=== PATIENT | female | born 1945 | race African-American/Black ===

== ENCOUNTER 2021-04-10 19:45 | Inpatient (IN) | payer OTHER ==
[~2021-04-10] VITALS: Ht 165.1 cm; Wt 104.3 kg
--- NOTE | ~2021-04-10 | EMS ---
[place] [id number] EMS Patient Care Report Name: SONY ALMANZA Room #: 434-P ADM IN M.R.#: [id number] Admission: 04/10/21 Attend Phys: Lawrence Lopez MD Discharge: Date of : 41 Report #: [id number] THIS REPORT FOR: //name// Report Transmitted: 04/13/2021 14:51 EMS Care Summary [place], [place]/[facility] Incident [id number] @ 04/10/2021 19:03 Incident Location [address] [place] [address] Patient SONY ALMANZA Female, 76 Years 1945 Patient Address [address] [place] [address] Patient History Congestive Heart Failure (CHF),Chronic Obstructive Pulmonary Disease (COPD),Diabetes,Hypertension (HTN),Kidney/Renal Failure,Amputee,Hemorrhoids,Dialysis,Coronary Artery Disease (CAD), Patient Allergies Penicillin allergy,Morphine,Intravenous Dye,Fish allergy,Gabapentin, Patient Medications Albuterol, Nitroglycerin, Midodrine, Aspirin, Lasix, Tramadol, Reglan, Metoprolol, Omeprazole, Atorvastatin, Renvela, Flonase, Lidocaine, Vitamin B12, Colace, Protonix, Chief Complaint DIABETIC ULCER WITH INFECTION Disposition Transported No Lights/[place] Dispatch Reason Sick Person Transported To [address] [place] [address] EMS Patient Care Report Name: SONY ALMANZA Room #: 434-P ADM IN M.R.#: [id number] Admission: 04/10/21 Attend Phys: Lawrence Lopez MD Discharge: Date of : 41 Report #: [id number] RESPONDED TO SICK AT HOME. UPON ARRIVAL PT FOUND SITTING IN CHAIR ALERT AND ORIENTED. FAMILY REPORT THEY'VE BEEN TREATING PT TOES FOR DIABETIC ULCERS BUT FEEL IT MAYBE INFECTED. PT TOES ARE WRAPPED IN [place]. PT REPORTS OTHER FOOT HAS ALREADY AMPUTATED TOES FROM THIS ISSUE. PT DENIES PAIN AND SCOOTED TO COT FROM WHEELCHAIR. PT VITALS OBTAINED. PT TRANSPORTED TO [facility] WITH NO CHANGES. PT TEAM LIFTED TO BED AND HANDRAILS UP. REPORT GIVEN TO NURSE. Initial Vitals @19:30P: 78,R: 18,BP: 106/51,Pain: 0/10,GCS: 15,SpO2: 97,Revised Trauma: 12, @19:35P: 66,R: 18,BP: 114/66,GCS: 15,CO: 14,SpO2: 100,Revised Trauma: 12, Assessments @19:06MENTAL:Place Oriented,Time Oriented,Person Oriented,Event Oriented,SKIN:HEENT:Head/Face: No Abnormalities,Eyes: No Abnormalities,Neck/Airway: No Abnormalities,LUNG SOUNDS:General: No Abnormalities,Left Upper: No Abnormalities,Right Upper: No Abnormalities,Left Lower: No Abnormalities,Right Lower: No Abnormalities,ABDOMEN:General: No Abnormalities,Left Upper: No Abnormalities,Right Upper: No Abnormalities,Left Lower: No Abnormalities,Right Lower: No Abnormalities,PELVIS//GI:No Abnormalities,EXTREMITIES:Right Leg: Weakness,Left Leg: Weakness,Left Arm: No Abnormalities,Right Arm: No Abnormalities,PULSE:NEURO:No Abnormalities, Impression Skin infection Procedures @19:06ALS AssessmentResponse: UnchangedSucceeded Timeline 19:00,Call Received 19:00,Dispatch Notified 19:03,Dispatched 19:03,En Route 19:03,On Scene 19:06,At Patient 19:06,ALS Assessment,Response: UnchangedSucceeded, 19:29,Depart Scene 19:30,BP: 106/51 M,PULSE: 78,RR: 18 R,SPO2: 97 Ox,ETCO2: ,BG: ,PAIN: 0,GCS: 15, 19:35,BP: 114/66 M,PULSE: 66,RR: 18 R,SPO2: 100 Ox,ETCO2: ,BG: ,PAIN: ,GCS: 15, 19:43,At Destination 19:53,Call Closed Disclaimer v1.1 Copyright 2020 [employer] This EMS Care Summary contains data elements from the applicable legal record (which may be displayed differently). It is designed to provide pertinent [address] [address] EMS Patient Care Report Name: SONY ALMANZA Room #: 434-P ADM IN M.R.#: [id number] Admission: 04/10/21 Attend Phys: Lawrence Lopez MD Discharge: Date of : 41 Report #: [id number] information for the following purposes: continuity of care, clinical quality, and state data reporting. The complete legal record is available to ED staff and administrators of the receiving hospital in [facility]'s Patient Tracker. All data is provided "as is."
[2021-04-10 20:35] LABS: ABSOLUTE NEUTROPHILS 4.6 thou/uL (1.4-8.2); BASOPHILS 1.3 % (0.0-2.0); EOSINOPHILS 2.2 % (0.0-3.0); HEMATOCRIT 30.6 % (37.0-47.0); HEMOGLOBIN 9.7 gm/dL (12.0-15.0); LYMPHOCYTES 22.1 % (24.0-44.0); MCH 27.8 pg (26.0-34.0); MCHC 31.7 g/dL (28.0-37.0); MCV 87.7 fL (80.0-100.0); MONOCYTES 11.4 % (1.0-8.0); PLATELET COUNT 403 thou/uL (150-400); RBC 3.48 mil/uL (4.20-5.00); WBC 7.4 thou/uL (4.0-11.0)
[2021-04-10 20:44] VITALS: BP 126/63
[2021-04-10 20:53] LABS: CALCIUM 9.3 mg/dL (8.5-10.1); CREATININE 10.8 mg/dL (0.6-1.0)
[2021-04-10 21:00] LABS: ALBUMIN 2.8 g/dL (3.4-5.0); TOTAL BILIRUBIN 0.4 mg/dL (0.2-1.0); TOTAL PROTEIN 8.5 g/dL (6.4-8.2)
[2021-04-10] MEDS ORDERED: TRAMADOL 50 MG50 MG PO (22:36)
[2021-04-10] MEDS ORDERED: RENVELA800 MG PO (22:37)
[2021-04-10] MEDS ORDERED: RENA-VITE RX T1 EACH PO (22:37)
[2021-04-10] MEDS ORDERED: RENA-VITE TABL0.8 MG PO (22:37)
[2021-04-10] MEDS ORDERED: ATORVASTATIN CA80 MG PO (22:37)
[2021-04-10] MEDS ORDERED: NYAMYC15 GM TOP (22:38)
[2021-04-10] MEDS ORDERED: OMEPRAZOLE 20 M20 M1 PO (22:38)
[2021-04-10] MEDS ORDERED: METOPROLOL TART25 MG PO (22:38)
[2021-04-10] MEDS ORDERED: PROAIR HFA8.5 GM INH (22:38)
[2021-04-10] MEDS ORDERED: OMEPRAZOLE40 MG PO (22:38)
[2021-04-10] MEDS ORDERED: FLONASE 0.05%50 MCG NARES (22:39)
[2021-04-10] MEDS ORDERED: LOPERAMIDE 2 MG2 M1 PO (22:39)
[2021-04-10] MEDS ORDERED: ASA81BEC PO (22:39)
[2021-04-10] MEDS ORDERED: COLACE100 MG PO (22:39)
[2021-04-10] MEDS ORDERED: VENTOLIN HFA INH8 GM INH (22:39)
[2021-04-10 22:42] VITALS: BP 192/69
[2021-04-10 23:05] VITALS: BP 161/64
--- NOTE | 2021-04-11 02:42 | NUR ---
ADMISSION ASSESSMENT COMPLETED. PT IS ALERT AND ORIENTED.DX DIABETIC FOOT WOUND, PT IS ON ROOM AIR. SHE DENIES ANY SOA DESPITE MISSING TWO DIALYSIS SESSIONS. WITH [facility]. TONY FISTULA WITH [facility] AND [facility].PT REPORTS SHE IS WHEEL CHAIR BOUND AT HOME. DRY SCALY SKIN NOTED TO BLE.DENIES ANY NAUSEA/VOMITING. BM A DAY AGO. ORIENTED TO STAFF AND USE OF CALL LIGHT. FALL PREC IN PLACE. NO FURTHER CONCERNS AT THIS TIME.
--- NOTE | 2021-04-11 03:31 | NUR ---
NEW PT ADMITTED TO ROOM 434. REPORT RECIEVED FROM ED, PT AO X4. DENIES ANY PAIN. IV VANCO INFUSING FROM ED. ORIENTATION TO ROOM/FACILITY PROVIDED. WOUND CARE PICTURES OF SACRUM AND LEFT FOOT/ LEFT TOE COMPLETED AND WOUNDS DRESSED. PT TOLERATED C NO PAIN. R THUMB PIV. LUE AV FISTUALA. NPO AFTER MIDNIGHT PER ORDERS, NOTFIED PT, PT VERBALIZED UNDERSTANDING. DENIES ANY OTHER NEEDS AT THIS TIME. CALL LIGHT IN REACH.
[2021-04-11 03:59] VITALS: BP 138/47
[2021-04-11 05:31] LABS: HEMATOCRIT 32.7 % (37.0-47.0); HEMOGLOBIN 10.3 gm/dL (12.0-15.0); MCH 27.7 pg (26.0-34.0); MCHC 31.4 g/dL (28.0-37.0); MCV 88.1 fL (80.0-100.0); RBC 3.71 mil/uL (4.20-5.00); RDW 17.3 % (10.5-14.5); WBC 6.9 thou/uL (4.0-11.0)
[2021-04-11 05:46] LABS: CALCIUM 8.7 mg/dL (8.5-10.1); CREATININE 10.8 mg/dL (0.6-1.0); POTASSIUM 4.6 mmol/L (3.5-5.1)
[2021-04-11 07:47] VITALS: BP 137/50
--- NOTE | 2021-04-11 11:21 | NUR ---
ASSUMED PT CARE THIS AM. PT IS ALERT & ORIENTED X4. PT HAS IV ON R WRIST SALINE LOCKED AND TONY FISTULA. PT IS WHEELCHAIR BOUND. PT DIALYSIS SCHEDULE IS EVERY SATURDAY, SATURDAY AND SATURDAY. PT IS ACCUCHECK ACHS. PT HAS WOUNDS ON L FOOT AND SACRUM. PT IS ON ROOM AIR. ADVANCE DIET TO RENAL/CARB CONTROL FOR LUNCH. PT TOLERATED MEDICATION WELL. NO C/O OF PAIN, NAUSEA AND VOITING. WILL CONTINUE TO MONITOR PT. FOLLOW POC.
--- NOTE | 2021-04-11 11:52 | NUR ---
INITIAL ASSESSMENT: SW reviewed chart and spoke with nursing and attending physician. Pt was admitted from home due to diabetic foot ulcer. Pt is currently NPO. Pt is on IV abx. ID/wound care/neprology consulted. Pt with hx of ESRD and is on dialysis. Pt has received a COVID vaccine. SW met with pt at bedside. Introduced role of SW. Pt is alert/orientated x 4. Pt reports she lives at home with her niece. Pt is mainly w/c bound. Pt has a alejandro lift and is able to stand and pivot. Pt goes to the [facility] dialysis clinic . Pt's chair time is noon. Pt has transportation through [employer]. Pt has used [facility] [employer] and [facility] in the past. Pt has been to [facility] in 2018. Pt's PCP is Dr. Adarsh Caraballo. Pt is hoping to be able to discharge back home when medically stable. Will need PT/OT evals ordered to evaluate pt for discharge needs. SW is following to assist as needed with discharge planning.
[2021-04-11 15:00] VITALS: BP 142/70
[2021-04-11 20:15] VITALS: BP 113/50
[2021-04-12 02:06] LABS: GLYCOHEMOGLOBIN (HGB A1C) 5.7 % (4.8-5.6)
--- NOTE | 2021-04-12 02:56 | NUR ---
ASSESSED AT START OF SHIFT. DR JOHNSON STOPPED BY TO SEE PT. WOUND CULTURE COLLECTED ON LEFT FOOT. IV INTACT AND ABX INFUSING, DIALYSIS FISTULA ON LEFT UA. 2.5L OF DIALYSIS OUT YESTERDAY PER REPORT. FALL PREC IN PLACE AND PT RESTING WELL.
[2021-04-12 08:18] VITALS: BP 105/52
[2021-04-12 08:20] VITALS: BP 108/60
--- NOTE | 2021-04-12 11:48 | NUR ---
Assumed pt care this am. Pt is alert & oriented x4. pt has iv site on r thumb and brendan fistula. Pt is wheelchair bound. Pt is accucheck achs. Pt will have dialysis this afternoon. Did wound dressing on L toe with NS, Aquacel AG, Kerlix and Tape. Applied barrier cream on sacrum. Pt is on room air. Pt will have aortogram tomorrow. Educated pt about turning q2h this am. Pt tolerated diet and medication well. No c/o of nausea and vomiting. Pt daughter at the bedside. Will continue to monitor pt. Follow POC.
--- NOTE | 2021-04-12 13:36 | NUR ---
Assess due to notification of pt with sacral and left foot wound. Hx DM, ESRD/dialysis, right transmetatarsal amputation. Pt had few missed dialysis treatments prior admit, difficulty getting transportation. C/o nausea and not eating well. Will usually drink Nepro at dialysis and willing to drink here. Assisted pt ordering menu options for tonights dinner. Wts variable 239-250 lb past few days. Low nutrition risk with appropriate nutrition interventions in place
[2021-04-12 17:24] VITALS: BP 144/76
--- NOTE | 2021-04-12 18:24 | NUR ---
Horacio Tracey "bhargav" called today and asked if the pt would qualify for a hospital bed and bsc. Based on level of function, her ins plan will not cover a bed and they do no cover BSC. Options for accessing these items discussed. She also notes they have ongoing problems with [facility] transport not be reliable and they have complained numerous times. Encouragement given to talk with the dialysis clinic [facility] as well as [facility] however the pt is outside the catchment area for christ[facility]. Bhargav is hoping [facility] can assist with wound care at [place] and referred to the pt to decide wheter she wanted to use [facility] or [facility] again. Will f/u with the pt. Dc time frame is uncertain as pt is having surgery for TMA soon and continues on ivatb. Therapy ordered.
[2021-04-12 20:10] VITALS: BP 133/50
[2021-04-13] VITALS (9 sets, daily range): BP systolic 110–150; BP diastolic 41–56
--- NOTE | 2021-04-13 02:28 | NUR ---
ASSESSED AT START OF SHIFT. PT RESTING IN BED. REPOSITION FOR COMFORT. TYELNOL GIVEN FOR PAIN. PT NPO AT MIDNIGHT. FALL PREC IN PLACE. ABX GIVEN. WILL CONT TO MONITOR.
[2021-04-13 09:08] LABS: HEP B SURFACE Ab(ANTI-HBS Non Reactive (()); HEPATITIS B SURFACE AG Negative (Negative)
--- NOTE | 2021-04-13 10:58 | NUR ---
ON-GOING ASSESSMENT: CM REVIEWED CHART. PT REMAINS ON IV ANBX. CONTINUING WITH DIALYSIS EVERY M/W/F. PLANS ARE FOR PATIENT TO HAVE ANGIOGRAM TODAY TO DETERMINE FURTHER INTERVENTIONS. CM WILL CONTINUE TO FOLLOW TO ASSIST NEEDED.
--- NOTE | 2021-04-13 12:58 | NUR ---
A/O X 4. ROOM AIR. WHEELCHAIR BOUND. RIGHT THUMB IV SALINE LOCKED. LEFT UPPER ARM FISTULA. NPO. WAITING TO HAVE ANGIOPLASTY TODAY. BILATERAL FEET SHE HAS NO FEELING. TRAMADOL GIVEN FOR BACK PAIN. HAVE HELD ALL OTHER MEDS.
--- NOTE | 2021-04-14 00:47 | NUR ---
Pt started on new abx meropenem. Nursing unable to administer med as it was put on hold, with a note that pt has anaphylactic reaction to pcn. DR López called and vm left regarding medication. Awaiting call back and update.
--- NOTE | 2021-04-14 00:52 | NUR ---
Nursing spoke with pt's niece per pt's request and provided update on care plan. Pt and niece were requesting pain patch for pt's hip/back. Oncall provider called and patch ordered. Pt had an episode of bile-looking emesis after taking meds with a scoop of applesauce. Pt now resting comfortable. 5 hours of bedrest complete. Mynx dressing to R/groin remains C/D/I. No hematoma noted. VSS stable. Pt repositioned a little to her L/side. Voiced being more comfortable. Nursing to continue to monitor.
[2021-04-14 04:38] VITALS: BP 158/47
--- NOTE | 2021-04-14 06:04 | NUR ---
Pt had another emesis this am. Excoriation to bottom treated with zguard. Pt declined nystatin this shift. Voiced she would have it put on today. Mynx dressings continues to remain without bleeding or hematoma. C/D/I. Fall precaution remains in place. Contact Isolation precaution for ESBL in wound. Nursing to continue to monitor.
[2021-04-14 07:25] VITALS: BP 149/72
--- NOTE | 2021-04-14 13:38 | HC ---
[facility] [place] [address] CONSULTATION Name: SONY ALMANZA Room #: 216-P ADM IN M.R.#: [id number] Admission: 04/10/21 Attend Phys: Lawrence Lopez MD Discharge: Date of : 41 Report #: [id number] THIS REPORT FOR: cc: Adarsh Caraballo MD, [place] S. MD Althoff, Jeffrey R. MD ~ DATE OF SERVICE: 04/11/2021 CHIEF COMPLAINT: Left foot ulcerations. HISTORY OF PRESENT ILLNESS: This is a 76-year-old female patient with a prior right transmetatarsal amputation, who was admitted to the hospital with a diabetic ulceration to the left foot. The wound care team was concerned for possible infection. She has missed several dialysis treatments. She denies any pain associated with the foot at this time. PAST MEDICAL HISTORY: Significant for type 2 diabetes mellitus, hypertension, end-stage renal disease requiring hemodialysis, atrial fibrillation, right foot transmetatarsal amputation. SOCIAL HISTORY: Negative for alcohol or tobacco use. FAMILY HISTORY: Noncontributory. MEDICATIONS: Include tramadol, sevelamer, atorvastatin, metoprolol, omeprazole, nystatin, loperamide, fluticasone. ALLERGIES: TO FISH OIL, OXYCODONE, PENICILLIN, SHELLFISH, GABAPENTIN, MORPHINE, AND MEPERIDINE. REVIEW OF SYSTEMS: CONSTITUTIONAL: Denies fever, chills, weight loss. NEUROLOGICAL: The patient denies focal weakness, tingling. EYES: The patient denies visual changes or drainage. ENT: The patient denies earache, nasal drainage or throat. CARDIOVASCULAR: The patient denies chest pain, palpitations, diaphoresis. PULMONARY: No cough, shortness of breath. GASTROINTESTINAL: Denies nausea, vomiting, diarrhea. ORTHOPEDIC: The patient is having some drainage and ulceration to the left foot. Others systems in a 14-point review of systems are negative. PHYSICAL EXAMINATION: VITAL SIGNS: At this time include temperature 36.4, pulse 80, respiration 18, blood pressure 142/70. GENERAL: This is a chronically ill-appearing female patient appears [address] [address] CONSULTATION Name: SONY ALMANZA Room #: 216-P [facility] IN M.R.#: [id number] Admission: 04/10/21 Attend Phys: Lawrence Lopez MD Discharge: Date of : 43 Report #: [id number] distress. HEENT: Normocephalic. Nose and throat clear. NECK: Supple. LUNGS: Diminished. HEART: Irregular without murmur. ABDOMEN: Soft. Bowel sounds present. EXTREMITIES: Lower extremities demonstrate a well-healed right transmetatarsal amputation, left foot demonstrates diminished distal pulses. There is some discoloration of the foot and lower leg with some hyperpigmentation. There is an ulceration on the dorsal aspect of the second toe and an ulcer between the toes that appears to probe to bone. NEUROLOGIC: The patient is alert and oriented. LABORATORY DATA: Sodium 134, potassium 4.6, chloride 93, CO2 21, BUN 72, creatinine is 10.8. White blood cell count is 6.9 with a hemoglobin of 10.3. CLINICAL IMPRESSION: 1. Torres 3 diabetic foot ulceration to the left foot with ulceration to the second toe and interdigital webspace probes to bone with x-ray suggestive of osteomyelitis. 2. End-stage renal disease requiring hemodialysis. 3. Hypertension. 4. Type 2 diabetes mellitus. 5. Atrial fibrillation. RECOMMENDATIONS: At this point in time, we will discuss with Dr. Blanco for possible surgical intervention. I think she needs a further vascular evaluation, possible angiography and revascularization if possible. We will do simple Aquacel AG dressings for now. The patient may require additional surgical intervention, possible transmetatarsal amputation. I appreciate being asked to see her in consultation. <ELECTRONICALLY SIGNED> By: Clifton Cramer MD 04/14/21 1338 0813 1130 Clifton Cramer MD /nt
[2021-04-14 20:17] VITALS: BP 101/51
[2021-04-15] VITALS (10 sets, daily range): BP systolic 83–143; BP diastolic 34–67
--- NOTE | 2021-04-15 04:53 | NUR ---
ASSUMED PT CARE AT 1900, PT IS AWAKE, ALERT AND ORIENTEDX4, SR ON TELE, DENIES PAIN OR SOB, BP SOFT, HELD METOPROLOL, BP LOW IN THE 80S SYSTOLIC, DIGITAL ENGINEER NOTIFIED, ORDERS FOR MIDODRINE RECEIVED AND GIVEN, BP REHECK BETTER IN THE 100S SYSTOLIC, NO ACUTE DISTRESS NOTED, PLAN FOR SURGERY TODAY, PT AWARE
[2021-04-15 05:38] LABS: CALCIUM 9.1 mg/dL (8.5-10.1); CREATININE 4.2 mg/dL (0.6-1.0); POTASSIUM 3.5 mmol/L (3.5-5.1)
--- NOTE | 2021-04-15 14:50 | NUR ---
PT RETURN TO UNIT FROM [facility] 1400 TODAY. REPORT GIVEN BY EDDIE COLLINS. DRESSING LEFT FOOT CDI. PT REMAINS ON ROOM AIR. WILL CONTIUNE TO ASSESS.
[2021-04-16 00:28] VITALS: BP 111/43
--- NOTE | 2021-04-16 04:18 | NUR ---
PT REMAINS ON TRACH SHIELD, TOLERATING WELL, TF INFUSING AT 20ML/HR, TOLERATING WELL, DENIES PAIN OR SOB, SR/SB ON TELE, EXPRESSES CONCERNS OF LEG WEAKNESS AND NEEDING MORE REHABILITATION TO BUILD HIS STRENGTH, PLAN FOR REHAB ONCE STABLE, PROGRESSING WELL TOWARDS POC
[2021-04-16 04:21] LABS: HEMATOCRIT 28.1 % (37.0-47.0); HEMOGLOBIN 8.9 gm/dL (12.0-15.0); POTASSIUM 4.2 mmol/L (3.5-5.1)
--- NOTE | 2021-04-16 04:29 | NUR ---
PT IS ALERT AND ORIENTED, SR ON TELE, C/O BACK PAIN, PAIN MEDS GIVEN WITH RELIEF, REPOSITIONED WITH PILLOWS, ASSESSMENTS CHARTED, VSS, PRAFO BOOTS APPLIED, PT REMAINS ON BEDREST THIS SHIFT, L. FOOT FDRESSING INTACT, WILL CONTINUE TO MONITOR
[2021-04-16 05:41] VITALS: BP 135/41
[2021-04-16 07:39] VITALS: BP 113/48
[2021-04-16 12:14] VITALS: BP 106/41
[2021-04-16 16:18] VITALS: BP 129/49
[2021-04-16 19:54] VITALS: BP 118/44
[2021-04-17 04:38] VITALS: BP 138/58
--- NOTE | 2021-04-17 04:39 | NUR ---
a&ox4, c/o chronic back pain, tyl given with partial relief, assessments as charted, meds given as per sep, dressing to the left foot intact, denies pain to the l.foot, acute distress noted, will continue to monitor
[2021-04-17 08:20] VITALS: BP 154/77
--- NOTE | 2021-04-17 08:21 | NUR ---
Pt UNDERWENT L TRANSMET AMP ON Saturday04/15/21 WHICH WAS LEFT OPEN, TO CLOSE IN 2-5 DAYS PER PODIATRY. WILL NEED NEW PT ORDER FROM PODIATRY/SURGERY W/ WB RESTRICTIONS/STATUS PRIOR TO INITIATING PT INTERVENTIONS WITH THIS PATIENT.
--- NOTE | 2021-04-17 08:56 | NUR ---
PATIENT HAD SURGERY ON 04/15/21 FOR A TRANS MET AMPUTATION AND IS TO BE LEFT OPEN FOR 2-5 DAYS PER PODIATRY. WILL NEED NEW ORDERS FROM PODIATRY/SURGERY ON WEIGHT-BEARING STATUS PRIOR TO EVALUATING PATIENT.
[2021-04-17 12:40] VITALS: BP 120/47
[2021-04-17 15:56] VITALS: BP 123/46
[2021-04-17 19:28] VITALS: BP 117/46
--- NOTE | 2021-04-18 03:31 | NUR ---
PT CARE ASSUMED WITH PT IN BED WATCHING TV.PT IS A/O X4.PT IS ON BEDREST AND USES A W/C AT HOME PER PT.PT IS ON ROOM AIR.PT IS ACCUCHECK ACHS. DRESSING ON LT FOOT C/D/I .PT IS ANURIC,AV FISTULA ON LT UA AND DIALYSE ON --.NYSTAIN POWDER APPLIED ORDERED.WILL CONTINUE TO MONITOR PER POC
[2021-04-18 04:20] VITALS: BP 126/50
[2021-04-18 07:40] VITALS: BP 125/54
[2021-04-18 15:24] VITALS: BP 135/55
--- NOTE | 2021-04-18 18:07 | NUR ---
Report called to Leta COLLINS.
[2021-04-18 19:42] VITALS: BP 161/66
[2021-04-19 04:38] VITALS: BP 129/60
[2021-04-19 05:33] LABS: HEMATOCRIT 28.7 % (37.0-47.0); HEMOGLOBIN 9.1 gm/dL (12.0-15.0); MCH 27.8 pg (26.0-34.0); MCHC 31.9 g/dL (28.0-37.0); MCV 87.2 fL (80.0-100.0); RBC 3.29 mil/uL (4.20-5.00); RDW 17.7 % (10.5-14.5)
--- NOTE | 2021-04-19 05:49 | NUR ---
PT ARRIVED FROM AT AROUND SHIFT CHANGE. ALERT AND ORIENTED. REPOSITIONNG PROVIDED PER HER REQUEST. LOOSE STOOL NOTED, EXCORIATED PINK BOTTOM, ZGUARD APPLIED. PRAFO BOOTS IN PLACE.ROOM AIR. AFEBRILE.ISOLATION FOR ESBL.PAIN TO LOWER BACK, ORAL MEDS HELP.NPO SINCE MIDNOC, PLAN FOR SURGERY TO FOOT WITH DR LOVELACE TODAY. PT AWARE.
[2021-04-19 06:13] LABS: CALCIUM 9.2 mg/dL (8.5-10.1); CREATININE 6.1 mg/dL (0.6-1.0)
[2021-04-19 07:30] VITALS: BP 133/51
--- NOTE | 2021-04-19 09:44 | NUR ---
Beside nurse reported she going for surgery today. Will cont following as needed for dc needs.
--- NOTE | 2021-04-19 15:41 | O ---
[facility] [place] [address] OPERATIVE REPORT Name: SONY ALMANZA Room #: 441-P ADM IN M.R.#: [id number] Admission: 04/10/21 Attend Phys: Lawrence Lopze MD Discharge: Date of : 41 Report #: [id number] THIS REPORT FOR: cc: Adarsh Caraballo MD, Washington S. MD Rizzi, Raymond M. DPM ~ DATE OF SERVICE: 04/15/2021 PREOPERATIVE DIAGNOSIS: Left diabetic foot ulcer with osteomyelitis. POSTOPERATIVE DIAGNOSES: Left diabetic foot ulcer with osteomyelitis with additional infection tracking back along the flexor digitorum longus to the proximal heel. SURGERY: Left transmetatarsal amputation. ANESTHESIA: General anesthesia. DESCRIPTION OF PROCEDURE: The patient was transferred to operating room and placed on the operative table in supine position. The left lower extremity was prepped and draped in the usual sterile manner. Attention was directed to the left foot after it was prepped and draped and a fishmouth incision was made, carrying the incision down to bone and then we cut in off the metatarsals distally, removing the distal part of the foot entirely. I then dissected back of the metatarsals and while doing so, I noted a significant infection tracking back along the FDL plantar aspect to the hindfoot. There was a significant tunnel. I removed contents of the tunnel as much as I could. I was considering doing a bigger incision on the plantar foot to open this up further, but because of the patient's frailty, I am holding off for a couple days to see how she improves. I will also discuss with the family. I flushed out thoroughly and removed all tendinous tissue in the plantar flap and then I closed it loosely with #5 Ethibond. Dressing changes will be done daily and if possible second surgery will be in next 2-5 days. This will be a wound culture and further debridement to see how she is doing. Possibly some antibiotic beads if we can have some at [facility]. A base dressing was applied of fluffs, Kerlix and Skip bandage. The patient [facility] [address] [place] [address] OPERATIVE REPORT Name: SONY ALMANZA Room #: 441-P [facility] IN ..#: [id number] Admission: 04/10/21 Attend Phys: Lawrence Lopez MD Discharge: Date of : 41 Report #: [id number] tolerated the procedure well and left the operating room with stable vital signs and vascular intact. <ELECTRONICALLY SIGNED> By: Catalino Bowie DPM 04/19/21 1541 1246 1314 Catalino Bowie DPM /nt
[2021-04-19 16:38] VITALS: BP 110/59
--- NOTE | 2021-04-19 16:43 | NUR ---
Pt scheduled for left foot transmet delayed wound closure and further debridment at 1830 this day. POD indicated that he had discussed that if wound is still infected --may not close this debridement. Discussed with Hilaria and family previously and they agree with plan. 5N assessed yesterday and they will look at WB status after procedure but will likely recommend skilled post acute care stay which they documented that pt refuses and indicated desire to return home with hh. Cm to follow regarding dc needs.
[2021-04-19 16:56] VITALS: BP 151/56
--- NOTE | 2021-04-19 17:07 | PATH ---
[facility] [address] [place] [address] PATHOLOGY RPT PROCEDURE Name: SONY ALMANZA Room #: 441-P ADM IN M.R.#: [id number] Admission: 04/10/21 Date of : 41 Discharge: Report #: [id number] Path Case #: [id number] [facility] Accession Number: [id number] . 01 Material submitted: . foot - LEFT TRANSMETATARSAL AMPUTATION. Modifiers: left . 01 Clinical history: . TRANSMETATARSAL AMPUTATION (RAY_ LEFT FOOT DIABETIC ULCER WITH OSTEOMYELITIS . 02 Diagnosis: Foot, left, transmetatarsal amputation: - Skin and subcutaneous tissue with ulceration and marked acute inflammation extending into underlying bone. - Bone with acute osteomyelitis and osteonecrosis on second toe. - Bone margins on all toes unremarkable. (IUV:joan; 04/19/2021) MBR 04/19/2021 1604 Local . 02 Electronically signed: . Emily Mckenzie MD, Pathologist NPI- [id number] . 01 Gross description: . The specimen is received in formalin, labeled "Sony Almanza, left transmetatarsal amputation". Received is a left forefoot amputation, with all five toes present, measuring 9.6 x 7.1 x 4.0 cm in greatest dimensions. All five bone margins are blunt in appearance, consistent with transection. The skin and soft tissue margins are inked as follows: Toe 1-black, toe 2-blue, toe 3-yellow, toe 4-red, toe 5-orange. All five nails are present displaying a light montalvo to brown-black and thickened appearance. The epidermal surface is dusky naylor-montalvo to brown-naylor in appearance. On the dorsal aspect of the second toe, a single lesion is identified, which is light montalvo and focally crusted in appearance, measuring 0.7 x 0.5 cm. The specimen is submitted representatively as follows: . A1 longitudinal cross-section through bone margin of toe 1, following decalcification A2 horizontal cross-section through lesion on toe 2, following decalcification A3 longitudinal cross-section through bone margin of toe 2, following decalcification A4 longitudinal cross-section through bone margin of toe 3, following decalcification A5 longitudinal cross-section through bone margin of toe 4, following [address] [address] PATHOLOGY RPT PROCEDURE Name: SONY ALMANZA Room #: 441-P [facility] IN M.R.#: [id number] Admission: 04/10/21 Date of : 41 Discharge: Report #: [id number] Path Case #: [id number] decalcification A6 longitudinal cross-section through bone margin of toe 5, following decalcification. (CAA; 04/18/2021) QA/[facility] 04/18/2021 1551 Local . 02 Pathologist provided ICD-10: L97.529, L98.9, M86.172, M87.9 . 02 CPT . 447882, [id number] Specimen Comment: A courtesy copy of this report has been sent to [phone] Specimen Comment: [id number], Specimen Comment: Report sent to , DR AREVALO / DR EARL Performed at: [address] [facility] [address], [place], [place] [id number] MD Jamal Villasenor MD Phone: [phone] Performed at: [address] [facility] [address] [id number] MD Emily Mckenzie MD Phone: [phone]
--- NOTE | 2021-04-19 18:41 | NUR ---
ASSUMED CARE OF PT AT 0700 THIS MORNING. PT IS A/OX4 AND SCHEDULED FOR SURGERY TODAY, UNKNOWN TIME. SURGERY TO CLOSE INCISION ON RT FOOT. PT HAD METATARSALS AMPUTATED ON BILAT FEET. ASSESSMENTS NOTED IN CHART AND OTHERWISE UNREMARKABLE. FALL PRECAUTIONS ARE IN PLACE. CALL LIGHT AND OTHER NEEDS ARE WITHIN REACH. MEDS AND TX GIVEN NEEDED AND SCHEDULED. WILL MONITOR AND NOTE ANY CHANGES. DIALYSIS NURSE ARRIVED THIS AFTERNOON TO PERFORM TX. CALLED PRE-OP AND THEY WERE INTERESTED IN BRINGING PT DOWN TO SURGERY. PT WON'T FINISH DIALYSIS UNTIL 1800 HRS. PULLED LAB DRAW FOR K+ PER ANESTHESIOLOGIST.PT IS GOING TO SURGERY AT 1900HRS THIS EVENING.
[2021-04-19 22:00] VITALS: BP 149/47
[2021-04-20 00:34] VITALS: BP 127/41
[2021-04-20 00:35] VITALS: BP 139/52; BP 145/54; BP 146/51
--- NOTE | 2021-04-20 03:55 | NUR ---
PT TAKEN DOWN TO SURGERY AT ABOUT SHIFT CHANGE. HAD I/D OF FOOT.PT IS DOING WELL. BLOOD SUGAR WHEN SHE CAME UP WAS 93, SHE ATE SOME BOXED LUNCH. CHRONIC BACK PAIN-GETTING NORCO WITH RELIEF.
[2021-04-20 04:09] VITALS: BP 133/48
[2021-04-20 04:58] LABS: POTASSIUM 4.2 mmol/L (3.5-5.1)
[2021-04-20 05:06] LABS: HEMATOCRIT 26.7 % (37.0-47.0); HEMOGLOBIN 8.6 gm/dL (12.0-15.0)
[2021-04-20 07:07] VITALS: BP 152/55
--- NOTE | 2021-04-20 11:54 | NUR ---
SW reviewed chart and spoke with nursing and attending physician. Pt is s/p left foot debridement and delayed wound closure of TMA, left foot. Pt remains on IV abx. PT/OT evals ordered today to evaluate pt. Awaiting WBS clarification as well. 5N consulted and will re-evaluate pt after therapy evals. Pt is resistent to going to a SNF. Pt has used [facility] and [facility] in the past. Pt goes to outpatient dialysis at the [facility] in [place]. REAL is following to assist as needed with discharge planning.
[2021-04-20 15:48] VITALS: BP 139/44
--- NOTE | 2021-04-20 19:17 | NUR ---
ASSUMED CARE OF PT AT 0700 THIS MORNING. PT HAS BEEN A/OX4, ASSESSMENTS ARE NO CHANGE FROM HANDOFF LAST NIGHT. CALL LIGHT AND OTHER NEEDS ARE IN REACH. FALL PRECAUTIONS IN PLACE. WOUND DRESSING ON RT FOOT C/D/I, RT FISTULA UNREMARKABLE. IV IN RT HAND PATENT. ASSESSMENTS NOTED IN CHART AND OTHERWISE UNREMARKABLE. MEDS AND TX GIVEN NEEDED AND SCHEDULED. WILL MONITOR AND NOTE ANY CHANGES.
[2021-04-20 19:44] VITALS: BP 108/46
--- NOTE | 2021-04-21 02:53 | NUR ---
PT ALERT AND ORIENTED. WOUND DRSG TO FOOT IS C/D/I. PT GIVEN PAIN MEDS FOR BACK AND HIP PAIN. REPOSITIONING PROVIDED PER HER REQUEST. NO FURTHER REQUESTS.
[2021-04-21 03:30] VITALS: BP 128/46
[2021-04-21 07:58] VITALS: BP 139/52
--- NOTE | 2021-04-21 13:01 | NUR ---
REAL reviewed chart and spoke with nursing and attending physician. Pt is progressing towards goals for discharge. REAL discussed case with 5N rehabilitation therapy technician and 5N MACHINED PARTS METAL SPRAYER. Pt does not meet admission criteria for 5N. REAL attempted to meet with pt at bedside. Pt was sleeping and having dialysis. REAL spoke with pt's niece, Kyung, via phone. Introduced role of REAL. REAL discussed discharge plan: SNF v. Home with HH. Pt's niece states that pt will not be going to a facility and that she can take care of pt at home. REAL discussed need for wound care and home IV abx. Pt's niece verbalized understanding. REAL provided options for HH and Home infusion companies. Pt's niece requested referral to be sent to [facility] , as they have used [facility] in the past. No preference of home infusion company. REAL confirmed pt's home address and phone number. Pt's niece asked about slings for the alejandro lift they have at home. Pt has had the alejandro lift for several years and is unaware of company who provided the lift. REAL offered to contact a DME company to see if they would be able to order slings. Pt's niece is agreeable. No preference of DME company provided. REAL contacted [facility] liaison regarding the alejandro lift slings. Pt's info faxed to Ariela. Ariela to follow up with pt's niece. REAL faxed referral to [facility] and notified liaisonSavannah. Will need to find out insurance coverage for abx and supplies. REAL also faxed HH referral to [facility] and notified HH liaisonEstela. No weekend discharge planned. Pt will need a PICC line placed for home IV abx. REAL updated 5N and attending physician. REAL is following to assist as needed with discharge planning.
[2021-04-21 16:05] VITALS: BP 133/64
--- NOTE | 2021-04-21 17:07 | NUR ---
assumed care of pt at 0700. pt alert and oriented, no acute distress. 1.1 liters of fluid removed during dialysis. complains of back pain - good relief with med regimen. LLE dressing chnged per order. vitals stable. no other changes to report. will continue to monitor.
[2021-04-21 20:34] VITALS: BP 126/52
[2021-04-22 06:34] LABS: HEMATOCRIT 26.1 % (37.0-47.0); HEMOGLOBIN 8.3 gm/dL (12.0-15.0); MCHC 31.8 g/dL (28.0-37.0); RBC 2.96 mil/uL (4.20-5.00); RDW 17.3 % (10.5-14.5); WBC 7.9 thou/uL (4.0-11.0)
[2021-04-22 07:23] VITALS: BP 134/46
--- NOTE | 2021-04-22 12:47 | NUR ---
Assumed pt care at 7am.Pt in bed resting. Assessment completed.vss. Rerpositioned pt confort.Trade Clerk assisted pt with meals.Good appetite.Dr Sweet here,order noted. Pt dangles at bs when dtr came to visit.Fall bundle in place.Will continue to monitor.
[2021-04-22 15:48] VITALS: BP 149/55
[2021-04-22 20:39] VITALS: BP 139/49
[2021-04-23 05:42] LABS: ABSOLUTE NEUTROPHILS 4.8 thou/uL (1.4-8.2); BASOPHILS 0.9 % (0.0-2.0); HEMATOCRIT 25.8 % (37.0-47.0); HEMOGLOBIN 8.3 gm/dL (12.0-15.0); LYMPHOCYTES 21.2 % (24.0-44.0); MCH 27.9 pg (26.0-34.0); MCHC 32.1 g/dL (28.0-37.0); MCV 86.9 fL (80.0-100.0); PLATELET COUNT 222 thou/uL (150-400); POLYS 56.9 % (36.0-66.0); RBC 2.97 mil/uL (4.20-5.00); RDW 17.6 % (10.5-14.5); WBC 8.4 thou/uL (4.0-11.0)
[2021-04-23 06:41] LABS: ALBUMIN 3.2 g/dL (3.4-5.0); CALCIUM 9.1 mg/dL (8.5-10.1); CREATININE 5.1 mg/dL (0.6-1.0); PHOSPHORUS 3.1 mg/dL (2.5-4.9); POTASSIUM 3.7 mmol/L (3.5-5.1); TOTAL BILIRUBIN 0.6 mg/dL (0.2-1.0); TOTAL PROTEIN 7.4 g/dL (6.4-8.2)
--- NOTE | 2021-04-23 07:29 | NUR ---
PT LYING IN BED. DENIES NEED FOR PAIN MEDICATION. RESTING COMFORTABLY. NO NEEDS VOICED. CALL LIGHT WITHIN REACH. FREQUENT OBSERVATION.
[2021-04-23 08:15] VITALS: BP 125/45
--- NOTE | 2021-04-23 11:27 | NUR ---
ASSUMED PT CARE THIS AM. PT IS ALERT & ORIENTED X4. PT HAS IV SITE ON RFA AND HAS TONY FISTULLA. PT IS ACCUCHECK ACHS. PT TOLERATED DIET AND MEDICATION WELL. NO C/O OF NAUSEA AND VOMITING. PT HAS PRAFO BOOTS ON. PT ON CONTACT ISOLATION DUE TO ESBL ON WOUNDS. PT ON THE BED, BED ON THE LOWEST POSITION, SIDE RAILS UP, CALL LIGHT WITHIN REACH. WILL CONTINUE TO MONITOR PT. FOLLOW POC.
[2021-04-23 15:50] VITALS: BP 115/33
[2021-04-23 19:19] VITALS: BP 104/55
[2021-04-24 04:32] VITALS: BP 99/36
--- NOTE | 2021-04-24 05:39 | NUR ---
PT LYING IN BED. [facility] PROVIDING PAIN RELIEF. TURN PER PT REQUEST. RESTING COMFORTABLY. NO NEEDS VOICED. CALL LIGHT WITHIN REACH. FREQUENT OBSERVATION.
[2021-04-24 07:24] VITALS: BP 118/44
[2021-04-24 11:15] VITALS: BP 118/44
--- NOTE | 2021-04-24 14:44 | NUR ---
ON-GOING ASSESSMENT: CM REVIEWED CHART AND SPOKE WITH ATTENDING. PT WAS A TENTATIVE DISCHARGE FOR TODAY BUT ATTENDING STATING THAT ID WANTS PODIATRY TO SEE PATIENT PRIOR TO DISCHARGE. CM UPDATED ANGELINA SANDOVAL WITH [facility] WHO REPORTS THEY CAN ACCEPT PATIENT AT THE TIME OF DISCHARGE. CM ALSO UPDATED ANGELINA IRIZARRY WITH [facility] OF THE PLAN. JUAN C WITH [facility] MET THIS AM WITH PATIENT AND HER NIECE THAT LIVES WITH HER (ROSALINA) TO DO BEDSIDE TEACHING. [facility] REPOR[facility] THEY DID WONDERFUL WITH THE TEACHING AND ROSALINA FEELS COMFORTABLE. CM NOTIFIED ATTENDING THAT PATIENT HAS NO PICC LINE CURRENTLY. PT IS TO GET A SINGLE LUMEN IJ TODAY (CM VERIFIED WITH JUAN C THAT THIS IS OK WITH THEM). CM ALSO SPOKE WITH PATIENTS NIECE ROSALINA AND NOTIFIED HER THAT CM SPOKE WITH AGUSTINA AT [facility] REGARDING THE SLINGS FOR PATIENTS CHANI LIFT AND THEY SHOULD BE CONTACTING HER TO ARRANGE GETTING THEM. CM ALSO UPDATED [facility] (FAX:[phone]). CM WILL CONTINUE TO FOLLOW TO ASSIST NEEDED.
--- NOTE | 2021-04-24 15:34 | NUR ---
Assumed pt care at 7am. Pt in bed most of the times this shift.Assessment completed.vss. Repositioned q 2h for comfort. Dr Sweet here, order noted. Iv team paged for line placement and Ij placed for home iv antibiotic. Pt in room receiving hemo dialysis.route returner here to educate pt niece on home iv antibiotic.Pt will dc home in am after seen by Dr Bowie. Zofran iv given for nausea this afternoon with relief.Fall precaution in place.Will continue to monitor.
[2021-04-24 16:39] VITALS: BP 118/87
[2021-04-24 19:58] VITALS: BP 119/60
--- NOTE | 2021-04-25 03:24 | NUR ---
ASSUMED PT CARE AT 1900.PT ALERT AND ORIENTED.PT;S FAMILY IN THE ROOM AT SHIFT CHANGE ASSISTING PT.PT IS A FALL RISK BUT SHE IS NOT COMPLIANT WITH FALL PRECAUTIONS.PT GOT UP AND SAT UP BY THE EDGE OF THE BED WITHOUT ASSIST.PT EDUCATED AND ENCOURAGED TO USE HER CALL LIGHT FOR ASSISTANCE.RED DRAINGE NOTED ON PT'S DRSG ON HER L FOOT,WAS NOT THERE AT START OF SHIFT.PUMPED IT WHILE TRYING TO SIT AT EDGE OF BED.MELI PRAFO BOOTS IN PLACE.PT REPOSITIONED WHILE IN BED.L UPPER ARM FISTULA POSITIVE FOR THRILL AND BRUIT.PAIN MED GIVEN PER PT'S REQUEST.FALL AND ISOLATION PRECAUTIONS MAINTAINED.CALL LIGHT WITHIN REACH.
--- NOTE | 2021-04-25 08:11 | NUR ---
VAT PLACED SL RT IJ LINE DUE TO HD STATUS FOR HOME ABX.
[2021-04-25 08:20] VITALS: BP 109/40
[2021-04-25 10:49] LABS: ABSOLUTE NEUTROPHILS 6.3 thou/uL (1.4-8.2); BASOPHILS 0.9 % (0.0-2.0); EOSINOPHILS 1.8 % (0.0-3.0); HEMATOCRIT 27.1 % (37.0-47.0); HEMOGLOBIN 8.5 gm/dL (12.0-15.0); LYMPHOCYTES 14.3 % (24.0-44.0); MCH 27.5 pg (26.0-34.0); MCHC 31.4 g/dL (28.0-37.0); MCV 87.5 fL (80.0-100.0); MONOCYTES 18.5 % (1.0-8.0); PLATELET COUNT 247 thou/uL (150-400); POLYS 64.5 % (36.0-66.0); RBC 3.09 mil/uL (4.20-5.00); RDW 17.3 % (10.5-14.5); WBC 9.8 thou/uL (4.0-11.0)
[2021-04-25 11:17] LABS: CALCIUM 9.3 mg/dL (8.5-10.1); MAGNESIUM 1.9 mg/dL (1.8-2.4); PHOSPHORUS 2.8 mg/dL (2.6-4.7); POTASSIUM 4.2 mmol/L (3.5-5.1)
[2021-04-25 11:18] LABS: CREATININE 4.1 mg/dL (0.6-1.0)
[2021-04-25] MEDS ORDERED: MEROPENEM500 MG IV (12:08)
[2021-04-25] MEDS ORDERED: COREG6.25 MG PO (12:08)
--- NOTE | 2021-04-25 15:38 | NUR ---
ON-GOING ASSESSMENT: CM REVIEWED CHART AND SPOKE WITH ATTENDING. PLANS WERE FOR PATIENT TO DISCHARGE HOME TODAY WITH IV ANBX. [facility] WAS ABLE TO ACCEPT PATIENT WITH IJ AND PROVIDE HH SERVICES [facility], HOWEVER ID FELT PATIENT NEEDS TO HAVE IJ REMOVED AND TICC LINE PLACED BEFORE DISCHARGE. IR CANNOT PLACE TODAY AND SO CM SPOKE WITH BEDSIDE RN WHO SPOKE WITH ATTENDING AND D/C WILL BE POSTPONED UNTIL TOMORROW. CM SPOKE WITH PATIENTS JOHNSON BANUELOS WHO STATES SHE DOES NOT WANT PATIENT TO GO HOME UNTIL FINAL LINE IS PLACED. PT WILL ALSO RECEIVE DIALYSIS HERE TOMORROW SO CM NOTIFIED LIZZ OLIVER. CM ALSO NOTIFIED LORI WITH [facility] THAT DISCHARGE IS POSTPONED UNTIL TOMORROW. CM ALSO NOTIFIED ANGELINA IRIZARRY WITH [facility]. CM ALSO NOTIFIED ATTENDING THAT FINAL LABS NEED TO BE INCLUDED IN DISCHARGE PAPERWORK WELL FOLLOW UP WITH DR. JOHNSON FOR ID.
[2021-04-25 17:12] VITALS: BP 92/40
--- NOTE | 2021-04-25 18:30 | NUR ---
PT TURNED PER REQUEST FOR HER BACK PAIN. DR. JOHNSON IN THIS AM AND ORDER FOR TUNNELED CATH WHICH WILL BE PLACED IN IR TOMORROW. PT TO DIALYZE FIRST AND THEN PLANS FOR DISCHARGE HOME LATER IN AFTERNOON.
[2021-04-25 19:31] VITALS: BP 129/48
--- NOTE | 2021-04-26 00:45 | NUR ---
PT'S NIECE AT HER BEDSIDE AT SHIFT CHANGE.PT REPOSITIONED WHILE IN BED PER HER REQUEST.Z GUARD TO HER BUTTOCKS.NYSTATIN POWDER TO HER PANNUS.DRSG TO HER L FOOT DRY AND INTACT WITH MIN DRAINAGE.PT ABLE TO MAKE HER NEEDS KNOWN.FALL AND ISOLATION PRECAUTIONS MAINTAINED.
[2021-04-26 04:27] VITALS: BP 130/55
[2021-04-26 08:05] VITALS: BP 122/44
--- NOTE | 2021-04-26 09:48 | NUR ---
ASSUMED PT CARE THIS AM. PT HAS IV SITE ON R IJ SALINE LOCKED. PT HAS TONY FISTULA AND CURRENTLY HAVING DIALYSIS. PT IS ON ROOM AIR. WOUND CARE DONE BY OTHER NURSE. PT IS ACCUCHECK ACHS. PT HAS BOOTS ON. GIVEN MIDODRINE AND ALBUMIN PER DIALYSIS NURSE. PT IS NPO AND AWAITING TO PLACE CENTRAL LINE. WILL CONTINUE TO MONITOR PT. FOLLOW POC.
--- NOTE | 2021-04-26 14:27 | O ---
[facility] [place] [address] OPERATIVE REPORT Name: SONY ALMANZA Room #: 441-P ADM IN M.R.#: [id number] Admission: 04/10/21 Attend Phys: Lawrence Lopez MD Discharge: Date of : 41 Report #: [id number] THIS REPORT FOR: cc: Adarsh Caraballo MD, [place] S. MD Rizzi, Raymond M. DPM ~ DATE OF SERVICE: 04/19/2021 PREOPERATIVE DIAGNOSIS: Left diabetic foot ulcer with osteomyelitis. POSTOPERATIVE DIAGNOSIS: Left diabetic foot ulcer with osteomyelitis. PROCEDURE PERFORMED: Left foot debridement and delayed wound closure of a transmetatarsal amputation, left foot. ANESTHESIA: General with a local block consisting of 10 mL of 0.5% ropivacaine. TOURNIQUET: None. DESCRIPTION OF PROCEDURE: The patient was transferred and left on her bed. The left lower extremity was prepped and draped in the usual sterile manner. Attention was directed to the previous left transmetatarsal amputation and opened. I removed any remaining sutures and opened it up and there was no bleeding at all. The plantar flap actually had three or four small patches of purplish hue in the distal aspect indicating some early necrosis beginning. I did take the tunnel out that had significant infection last time and I cleaned it out further with no signs of infection today. I removed any tendinous tissue that remained and then bevelled the flaps and closed them using 2-0 nylon after washing with normal saline, bacitracin mix. I also took some further deep tissue before lavaging and sent it for aerobic, anaerobic and fungal. I dressed with Xeroform, fluffs and Kerlix and Skip bandage loosely. [facility] [address] [place] [address] OPERATIVE REPORT Name: SONY ALMANZA Room #: 441-P [facility] IN ..#: [id number] Admission: 04/10/21 Attend Phys: Lawrence Lopez MD Discharge: Date of : 41 Report #: [id number] The patient tolerated the procedure well and left the operating room in stable condition with stable vital signs and vascular status intact. <ELECTRONICALLY SIGNED> By: Catalino Bowie DPM 04/26/21 1427 52 13 Catalino Bowie DPM /nt
--- NOTE | 2021-04-26 15:42 | NUR ---
on-going assessment: CM REVIEWED CHART AND SPOKE WITH ATTENDING WELL BEDSIDE RN. PLANS ARE FOR PATIENT TO DISCHARGE TODAY AFTER HER DIALYSIS AND NEW LINE BEING PLACED FOR IV INFUSION AT HOME. CM NOTIFIED [facility] LIANELSON SINCLAIRA OF DISCHARGE TODAY AND FAXED DISCHARGE ORDERS AND CONFIRMED THEY RECEIVED THEM. CM ALSO NOTIFIED LIANELSON JUAN C WITH [facility] OF DISCHARGE TODAY AND FAXED DISCHARGE ORDERS CONFIRMING THEY RECEIVED IT. CM ALSO NOTIFIED THEM OF TIME PT RECEIVED IV ANBX HERE TODAY. CM SPOKE WITH PATIENT AND SHE IS AGREEABLE WITH DISCHARGE TODAY WELL HER NIECE ROSALINA WHO LIVES WITH HER. PT ASKING ABOUT A SLIDING BOARD AND SLINGS FOR HER CHANI LIFT. CM AGAIN REACHED OUT TO LIANELSON AGUSTINA AT [facility] TO FOLLOW UP WITH SLINGS FOR CHANI LIFT. HE STATES THEY RECEIVED ALL NEEDED RX/PAPERWORK FOR SLINGS AND CM SPOKE WITH NIECE AND NOONE HAD CONTACTED HER YET. AGUSTINA FROM [facility] [place] STATING HE WILL MAKE SURE THEY CONTACT HER TODAY. CM ALSO PROVIDED NIECE WITH NUMBER FOR [facility] IF SHE HAS ANY ISSUES. MIGUEL ALSO DISCUSSED THAT [facility] DOES NOT HAVE ANY SLIDE BOARDS IN STOCK NEITHER DOES PROVIDER [employer] BUT LIANELSON FROM PROVIDER [facility] STATING THAT IF FAMILY IS INTERESTED IN BUYING ONE OFF [employer] THAT IS LIKELY MOST COST EFFICIENT. CM NOTIFIED NINARCISA ROMANO WHO REPORTS SHE WILL LOOK INTO THIS. CM ALSO SET UP AMBULANCE TRANSPORTATION HOME [facility] AND CONFIRMED PATIENTS HOME ADDRESS. TRANSPORT HAS BEEN ARRANGED FOR 1600. PT , BEDSIDE RN, AND PTS NIECE ARE ALL AWARE OF THIS TIME. CONTACT [facility] WITH ANY ISSUES AT [phone]. CASE CLOSED.
== END 2021-04-26 16:03 | disposition home health service (06) | DRG 616 ==
LOC: ER 19:45 → 2N 21:37 → EROBS 21:37 → 4S 21:37 → 2N 04-13 18:00 → 4S 04-18 18:56
PROVIDERS: Anesthesiology; Hospitalist; Internal Medicine; Nurse Practitioner; Nurse Practitioner Family; Podiatrist Foot & Ankle Surgery; ADMIT Hospitalist; ATTEND Hospitalist
PROC: 5A1D70Z Performance of Urinary Filtration, Intermittent, Less than 6 Hours Per Day (ICD-10-PCS; 2021-04-12)
PROC: B41D1ZZ Fluoroscopy of Aorta and Bilateral Lower Extremity Arteries using Low Osmolar Contrast (ICD-10-PCS; 2021-04-13)
PROC: B4181ZZ Fluoroscopy of Bilateral Renal Arteries using Low Osmolar Contrast (ICD-10-PCS; 2021-04-13)
PROC: 0Y6N0ZB Detachment at Left Foot, Partial 2nd Ray, Open Approach (ICD-10-PCS; 2021-04-15)
PROC: 0Y6N0Z9 Detachment at Left Foot, Partial 1st Ray, Open Approach (ICD-10-PCS; 2021-04-15)
PROC: 0Y6N0ZF Detachment at Left Foot, Partial 5th Ray, Open Approach (ICD-10-PCS; 2021-04-15)
PROC: 0Y6N0ZC Detachment at Left Foot, Partial 3rd Ray, Open Approach (ICD-10-PCS; 2021-04-15)
PROC: 0Y6N0ZD Detachment at Left Foot, Partial 4th Ray, Open Approach (ICD-10-PCS; 2021-04-15)
PROC: 5A1D70Z Performance of Urinary Filtration, Intermittent, Less than 6 Hours Per Day (ICD-10-PCS; 2021-04-17)
PROC: 5A1D70Z Performance of Urinary Filtration, Intermittent, Less than 6 Hours Per Day (ICD-10-PCS; 2021-04-19)
PROC: 5A1D70Z Performance of Urinary Filtration, Intermittent, Less than 6 Hours Per Day (ICD-10-PCS; 2021-04-21)
PROC: 5A1D70Z Performance of Urinary Filtration, Intermittent, Less than 6 Hours Per Day (ICD-10-PCS; 2021-04-23)
PROC: B543ZZA Ultrasonography of Right Jugular Veins, Guidance (ICD-10-PCS; principal; 2021-04-26)
PROC: 0JDR0ZZ Extraction of Left Foot Subcutaneous Tissue and Fascia, Open Approach (ICD-10-PCS; principal; 2021-04-26)
PROC: 0YQN0ZZ Repair Left Foot, Open Approach (ICD-10-PCS; principal; 2021-04-26)
PROC: B548ZZA Ultrasonography of Superior Vena Cava, Guidance (ICD-10-PCS; 2021-04-26)
PROC: B5181ZA Fluoroscopy of Superior Vena Cava using Low Osmolar Contrast, Guidance (ICD-10-PCS; 2021-04-26)
PROC: 0JH63XZ Insertion of Tunneled Vascular Access Device into Chest Subcutaneous Tissue and Fascia, Percutaneous Approach (ICD-10-PCS; 2021-04-26)
PROC: 02H633Z Insertion of Infusion Device into Right Atrium, Percutaneous Approach (ICD-10-PCS; 2021-04-26)
DX: E11.621 Type 2 diabetes mellitus with foot ulcer (principal); E43 Unspecified severe protein-calorie malnutrition; M86.8X7 Other osteomyelitis, ankle and foot; M31.9 Necrotizing vasculopathy, unspecified; B37.89 Other sites of candidiasis; L97.526 Non-pressure chronic ulcer of other part of left foot with bone involvement without evidence of necrosis; M00.9 Pyogenic arthritis, unspecified; K52.1 Toxic gastroenteritis and colitis; I12.0 Hypertensive chronic kidney disease with stage 5 chronic kidney disease or end stage renal disease; E11.69 Type 2 diabetes mellitus with other specified complication; N18.6 End stage renal disease; K21.9 Gastro-esophageal reflux disease without esophagitis; E11.22 Type 2 diabetes mellitus with diabetic chronic kidney disease; S92.911A Unspecified fracture of right toe(s), initial encounter for closed fracture; I48.0 Paroxysmal atrial fibrillation; Y92.89 Other specified places as the place of occurrence of the external cause; H54.61 Unqualified visual loss, right eye, normal vision left eye; R53.81 Other malaise; M54.5 Low back pain; G89.29 Other chronic pain; E11.51 Type 2 diabetes mellitus with diabetic peripheral angiopathy without gangrene; B95.61 Methicillin susceptible Staphylococcus aureus infection as the cause of diseases classified elsewhere; T36.95XA Adverse effect of unspecified systemic antibiotic, initial encounter; I95.9 Hypotension, unspecified; D63.8 Anemia in other chronic diseases classified elsewhere; Z99.2 Dependence on renal dialysis; Z98.49 Cataract extraction status, unspecified eye; Z90.49 Acquired absence of other specified parts of digestive tract; Z68.38 Body mass index [BMI] 38.0-38.9, adult; Z88.8 Allergy status to other drugs, medicaments and biological substances; Z88.6 Allergy status to analgesic agent; Z91.041 Radiographic dye allergy status; Z88.0 Allergy status to penicillin; Z91.013 Allergy to seafood; Z82.49 Family history of ischemic heart disease and other diseases of the circulatory system; Z20.822 Contact with and (suspected) exposure to COVID-19
CPT/HCPCS: 10081; 10100; 10194; 10195; 32100; 50010; 50101; 50386; 50951; 56524; 56525; 56527; 57091; 62110; 62900; 70005